=== PATIENT | male | born 1995 | race African-American/Black ===

== ENCOUNTER 2021-08-27 10:29 | Emergency (ER) | payer SELFPAY ==
[2021-08-27 13:14] LABS: SARS-COV-2 RT PCR POSITIVE (NEGATIVE)
--- NOTE | 2021-08-27 13:20 | ER ---
Nurse's Notes [facility] Name: Casey Valentine Age: 26 yrs Sex: Male : 1995 Arrival Date: 08/27/2021 Time: 10:30 Bed 10 Private MD: Diagnosis: Coronavirus infection, unspecified Presentation: 08/27 11:02 Chief complaint: Patient states: cough x 4 days. Pt states, "common cold symptoms.". ss Coronavirus screen: Client denies travel out of the [place] in the last 14 days. Ebola Screen: Patient denies exposure to infectious person. Patient denies travel to an Ebola-affected area in the 21 days before illness onset. Initial Sepsis Screen: Does the patient meet any 2 criteria? No. Patient's initial sepsis screen is negative. Does the patient have a suspected source of infection? No. Patient's initial sepsis screen is negative. Risk Assessment: Do you want to hurt yourself or someone else? Patient reports no desire to harm self or others. Onset of symptoms was August 23, 2021. 11:02 Method Of Arrival: Ambulatory ss 11:02 Acuity: MAVIS 4 ss Historical: - Allergies: 11:04 peanuts; ss - Home Meds: 11:04 None [Active]; ss - PMHx: 11:04 None; ss - PSHx: 11:04 None; ss - Immunization history:: Client reports having NOT received the Covid vaccine. - Social history:: Smoking status: Patient/guardian denies using tobacco, Stopped _ months ago .2. Screenin:25 Abuse screen: Denies threats or abuse. Denies injuries from another. Nutritional iw screening: No deficits noted. Tuberculosis screening: No symptoms or risk factors identified. Fall Risk None identified. Assessment: 13:10 General: Appears in no apparent distress. Behavior is calm, cooperative. Pain: Denies iw pain. Neuro: Level of Consciousness is awake, alert, obeys commands, Oriented to person, place, time, situation, Moves all extremities. Full function. Cardiovascular: Patient's skin is warm and dry. Respiratory: Reports cough that is Respiratory effort is even, unlabored, Respiratory pattern is regular, symmetrical. GI: Abdomen is non-distended. Derm: Skin is intact, is healthy with good turgor. Musculoskeletal: Range of motion: intact in all extremities. Vital Signs: 11:02 BP 110 / 74; Pulse 73; Resp 16; Temp 97.8(TE); Pulse Ox 100% on R/A; Height 5 ft. 11 ss in. (180.34 cm); Pain 4/10; ED Course: 10:30 Patient arrived in ED. kc5 11:04 Triage completed. ss 11:04 Arm band placed on left wrist. ss 13:10 Patient has correct armband on for positive identification. iw 13:17 Magui Gregg, RN is Primary Nurse. iw 13:18 Jagjit Disla NP is PHCP. pm1 13:18 Matthew Alanis MD is Attending Physician. pm1 13:25 No provider procedures requiring assistance completed. Patient did not have IV access iw during this emergency room visit. Administered Medications: No medications were administered Outcome: 13:20 Discharge ordered by MD. pm1 13:34 Discharged to home ambulatory, with family. iw 13:34 Condition: good 13:34 Discharge instructions given to patient, Instructed on discharge instructions, follow up and referral plans. Demonstrated understanding of instructions, follow-up care. 13:35 Patient left the ED. iw Signatures: Magui Gregg, ROSA LEE Candace Roldan RN RN Jagjit Disla NP [employer] pm1 Radha Qureshi kc5
--- NOTE | 2021-08-27 13:20 | EDPHYS ---
Physician Documentation [facility] Name: Casey Valentine Age: 26 yrs Sex: Male : 1995 Arrival Date: 08/27/2021 Time: 10:30 Bed 10 Private MD: ED Physician Matthew Alanis HPI: 08/27 13:18 This 26 yrs old Black Male presents to ER via Ambulatory with complaints of Flu pm1 Symptoms. 13:18 The patient or guardian reports cough, with no sputum. Onset: The symptoms/episode pm1 began/occurred 3 day(s) ago. Severity of symptoms: in the emergency department the symptoms are unchanged. Modifying factors: The symptoms are alleviated by nothing, the symptoms are aggravated by nothing. Associated signs and symptoms: Pertinent positives: Body ache, Pertinent negatives: chest pain, diarrhea, fever, sore throat, vomiting. The patient has not experienced similar symptoms in the past. The patient has not recently seen a physician. Incident to ER with girlfriend who has similar symptoms. Historical: - Allergies: 11:04 peanuts; ss - Home Meds: 11:04 None [Active]; ss - PMHx: 11:04 None; ss - PSHx: 11:04 None; ss - Immunization history:: Client reports having NOT received the Covid vaccine. - Social history:: Smoking status: Patient/guardian denies using tobacco, Stopped _ months ago .2. ROS: 13:18 Eyes: Negative for injury, pain, redness, and discharge, ENT: Negative for injury, pm1 pain, and discharge, Neck: Negative for injury, pain, and swelling, Cardiovascular: Negative for chest pain, palpitations, and edema. 13:18 Abdomen/GI: Negative for abdominal pain, nausea, vomiting, diarrhea, and constipation, MS/Extremity: Negative for injury and deformity, Skin: Negative for injury, rash, and discoloration, Neuro: Negative for headache, weakness, numbness, tingling, and seizure. 13:18 Constitutional: Positive for body aches, Negative for fever, poor PO intake. 13:18 Respiratory: Positive for cough, Negative for shortness of breath, sputum production. 13:18 All other systems are negative. Exam: 13:18 Constitutional: This is a well developed, well nourished patient who is awake, alert, pm1 and in no acute distress. Head/Face: Normocephalic, atraumatic. 13:18 Back: No spinal tenderness. No costovertebral tenderness. Full range of motion. Skin: Warm, dry with normal turgor. Normal color with no rashes, no lesions, and no evidence of cellulitis. MS/ Extremity: Pulses equal, no cyanosis. Neurovascular intact. Full, normal range of motion. 13:18 Cardiovascular: Exam negative for acute changes, Rate: normal, Rhythm: regular, Pulses: no pulse deficits are appreciated. 13:18 Respiratory: Exam negative for acute changes, respiratory distress, shortness of breath, Breath sounds: are clear throughout. 13:18 Neuro: Exam negative for acute changes, Orientation: is normal, Mentation: is normal, Motor: is normal, moves all fours, Sensation: is normal, no obvious gross deficits. Vital Signs: 11:02 BP 110 / 74; Pulse 73; Resp 16; Temp 97.8(TE); Pulse Ox 100% on R/A; Height 5 ft. 11 ss in. (180.34 cm); Pain 4/10; MDM: 13:18 Patient medically screened. pm1 13:19 Data reviewed: vital signs. Data interpreted: Pulse oximetry: on room air is 100 %. pm1 Interpretation: normal. 13:19 Counseling: I had a detailed discussion with the patient and/or guardian regarding: lab pm1 results, the need for outpatient follow up, to return to the emergency department if symptoms worsen or persist or if there are any questions or concerns that arise at home. 08/27 11:45 Order name: Strep; Complete Time: 13:18 ss 08/27 11:45 Order name: COVID-19/FLU A+B (Document "Date of Onset" if Symptomatic); Complete Time: ss 13:18 08/27 12:24 Order name: Throat Culture EDMS Administered Medications: No medications were administered Disposition: 15:47 Co-signature as Attending Physician, Matthew Alanis MD I agree with the assessment and kdr plan of care. Disposition Summary: 08/27/21 13:20 Discharge Ordered Location: Home pm1 Problem: new pm1 Symptoms: have improved pm1 Condition: Stable pm1 Diagnosis - Coronavirus infection, unspecified pm1 Followup: pm1 - With: Emergency Department - When: As needed - Reason: Worsening of condition Followup: pm1 - With: Private Physician - When: 2 - 3 days - Reason: Recheck today's complaints, Continuance of care, Re-evaluation by your physician Discharge Instructions: - Discharge Summary Sheet pm1 - COVID-19 pm1 - COVID-19 Frequently Asked Questions pm1 - 10 Things You Can Do to Manage Your COVID-19 Symptoms at Home - [facility] pm1 - COVID-19: Quarantine vs. Isolation - [facility] pm1 Forms: - Medication Reconciliation Form pm1 - Thank You Letter pm1 - Antibiotic Education pm1 - Prescription Opioid Use pm1 - Work release form jl7 Signatures: Dispatcher [employer] EDMS Matthew Alanis MD MD kdr Smirch, Shelby, RN RN ss Jagjit Disla NP [employer] pm1
[2021-08-27 14:04] VITALS: BP 110/74; TEMP 97.8; O2SAT 100
== END 2021-08-27 13:35 | disposition home or self-care (01) ==
LOC: ER 10:29
DX: U07.1 COVID-19 (principal)
CPT/HCPCS: 0240U; 87070; 87081; 99281

== ENCOUNTER 2022-04-15 10:36 | Emergency (ER) | payer SELFPAY ==
--- NOTE | 2022-04-15 11:50 | EDPHYS ---
Physician Documentation [facility] Name: Casey Valentine Age: 26 yrs Sex: Male : 1995 Arrival Date: 04/15/2022 Time: 10:39 Bed DIS5 Private MD: ED Physician Andi Plummer HPI: 04/15 11:44 This 26 yrs old Black Male presents to ER via Ambulatory with complaints of savana Vomiting/Diarrhea, Cough, Headache, Abdominal Pain. 11:44 The patient presents to the emergency department with nausea, vomiting, diarrhea, that savana is intermittent. Onset: The symptoms/episode began/occurred 5 day(s) ago. Possible causes: unknown. The symptoms are aggravated by nothing. The symptoms are alleviated by nothing. Associated signs and symptoms: The patient has no apparent associated signs or symptoms. Severity of symptoms: At their worst the symptoms were. The patient has experienced similar episodes in the past, a few times. Historical: - Allergies: 11:28 peanuts; iw - Immunization history:: Adult Immunizations unknown. - Social history:: Smoking status: unknown. ROS: 11:45 Constitutional: Negative for fever, chills, and weight loss, Eyes: Negative for injury, savana pain, redness, and discharge, ENT: Negative for injury, pain, and discharge, Neck: Negative for injury, pain, and swelling, Cardiovascular: Negative for chest pain, palpitations, and edema, Respiratory: Negative for shortness of breath, cough, wheezing, and pleuritic chest pain, Back: Negative for injury and pain, : Negative for injury, bleeding, discharge, and swelling, MS/Extremity: Negative for injury and deformity, Skin: Negative for injury, rash, and discoloration, Neuro: Negative for headache, weakness, numbness, tingling, and seizure, Psych: Negative for depression, anxiety, suicide ideation, homicidal ideation, and hallucinations, Allergy/Immunology: Negative for hives, rash, and allergies, Endocrine: Negative for neck swelling, polydipsia, polyuria, polyphagia, and marked weight changes, Hematologic/Lymphatic: Negative for swollen nodes, abnormal bleeding, and unusual bruising. 11:45 Abdomen/GI: Positive for nausea and vomiting, diarrhea. Exam: 11:45 Constitutional: This is a well developed, well nourished patient who is awake, alert, savana and in no acute distress. Head/Face: Normocephalic, atraumatic. Eyes: Pupils equal round and reactive to light, extra-ocular motions intact. Lids and lashes normal. Conjunctiva and sclera are non-icteric and not injected. Cornea within normal limits. Periorbital areas with no swelling, redness, or edema. ENT: Nares patent. No nasal discharge, no septal abnormalities noted. Tympanic membranes are normal and external auditory canals are clear. Oropharynx with no redness, swelling, or masses, exudates, or evidence of obstruction, uvula midline. Mucous membranes moist. Neck: Trachea midline, no thyromegaly or masses palpated, and no cervical lymphadenopathy. Supple, full range of motion without nuchal rigidity, or vertebral point tenderness. No Meningismus. Chest/axilla: Normal chest wall appearance and motion. Nontender with no deformity. No lesions are appreciated. Cardiovascular: Regular rate and rhythm with a normal S1 and S2. No gallops, murmurs, or rubs. Normal PMI, no JVD. No pulse deficits. Respiratory: Lungs have equal breath sounds bilaterally, clear to auscultation and percussion. No rales, rhonchi or wheezes noted. No increased work of breathing, no retractions or nasal flaring. Abdomen/GI: Soft, non-tender, with normal bowel sounds. No distension or tympany. No guarding or rebound. No evidence of tenderness throughout. Back: No spinal tenderness. No costovertebral tenderness. Full range of motion. Male : Normal genitalia with no discharge or lesions. Skin: Warm, dry with normal turgor. Normal color with no rashes, no lesions, and no evidence of cellulitis. MS/ Extremity: Pulses equal, no cyanosis. Neurovascular intact. Full, normal range of motion. Neuro: Awake and alert, GCS 15, oriented to person, place, time, and situation. Cranial nerves II-XII grossly intact. Motor strength 5/5 in all extremities. Sensory grossly intact. Cerebellar exam normal. Normal gait. Psych: Awake, alert, with orientation to person, place and time. Behavior, mood, and affect are within normal limits. Vital Signs: 11:28 BP 119 / 82; Pulse 77; Resp 16; Temp 98.4; Pulse Ox 99% on R/A; iw MDM: 11:04 Patient medically screened. [facility] 11:46 Differential diagnosis: Nonspecific abd pain, gastritis, viral gastroenteritis, savana gastroenteritis. Data reviewed: vital signs, nurses notes, lab test result(s). Data interpreted: process development manager: rate is 77 beats/min, rhythm is regular, Pulse oximetry: on room air is 99 %. Test interpretation: by ED physician or midlevel provider: ECG, plain radiologic studies. Counseling: I had a detailed discussion with the patient and/or guardian regarding: the historical points, exam findings, and any diagnostic results supporting the discharge/admit diagnosis, lab results, radiology results. 04/15 11:44 Order name: SARS RAPID savana Administered Medications: No medications were administered Disposition Summary: 04/15/22 11:49 Discharge Ordered Location: Home [facility] Problem: new savana Symptoms: have improved savana Condition: Stable savana Diagnosis - Vomiting savana - Diarrhea, unspecified savana - Cough savana Followup: savana - With: Private Physician - When: 2 - 3 days - Reason: Recheck today's complaints, Continuance of care, Re-evaluation by your physician Discharge Instructions: - Discharge Summary Sheet savana - Diarrhea, Adult savana - Diarrhea, Adult, [id number] savana - Cough, Adult, [id number] savana - Cough, Adult savana - Vomiting, Adult savana Forms: - Medication Reconciliation Form savana - Thank You Letter savana - Antibiotic Education savana - Prescription Opioid Use savana - Work release form eb Signatures: Dispatcher [employer] Andi George MD MD cha Williams, Irene, RN RN iw
--- NOTE | 2022-04-15 11:50 | ER ---
Nurse's Notes [facility] Name: Casey Valentine Age: 26 yrs Sex: Male : 1995 Arrival Date: 04/15/2022 Time: 10:39 Bed DIS5 Private MD: Diagnosis: Vomiting;Diarrhea, unspecified;Cough Presentation: 04/15 11:27 Chief complaint: Patient states: needs a COVId test, has diarrhea, acid reflux, iw vomiting , and I have a rash on my neck. Coronavirus screen: Client presents with at least one sign or symptom that may indicate coronavirus-19. Ebola Screen: Patient negative for fever greater than or equal to 101.5 degrees Fahrenheit, and additional compatible Ebola Virus Disease symptoms Patient denies exposure to infectious person. Patient denies travel to an Ebola-affected area in the 21 days before illness onset. No symptoms or risks identified at this time. 11:27 Method Of Arrival: Ambulatory iw 11:27 Acuity: MAVIS 4 iw 11:28 Initial Sepsis Screen: Does the patient meet any 2 criteria? No. Patient's initial iw sepsis screen is negative. Does the patient have a suspected source of infection? No. Patient's initial sepsis screen is negative. Risk Assessment: Do you want to hurt yourself or someone else? Patient reports no desire to harm self or others. Onset of symptoms was April 08, 2022. Triage Assessment: 11:30 General: Appears in no apparent distress. comfortable, Behavior is calm, cooperative. iw Pain: Denies pain. GI: Reports nausea. Historical: - Allergies: 11:28 peanuts; iw - Immunization history:: Adult Immunizations unknown. - Social history:: Smoking status: unknown. Screenin:01 Abuse screen: Denies threats or abuse. Nutritional screening: No deficits noted. bm7 Tuberculosis screening: No symptoms or risk factors identified. Fall Risk None identified. Assessment: 12:01 Reassessment: No changes from previously documented assessment. Patient is alert, bm7 oriented x 3, equal unlabored respirations, skin warm/dry/pink. 12:10 GI: Abdomen is flat, non-distended. iw Vital Signs: 11:28 BP 119 / 82; Pulse 77; Resp 16; Temp 98.4; Pulse Ox 99% on R/A; iw ED Course: 10:39 Patient arrived in ED. mr 11:04 Andi Plummer MD is Attending Physician. [facility] 11:28 Triage completed. iw 11:28 Arm band placed on. iw 11:30 Magui Gregg, RN is Primary Nurse. iw 12:01 Patient has correct armband on for positive identification. Call light in reach. bm7 12:01 No provider procedures requiring assistance completed. Patient did not have IV access bm7 during this emergency room visit. Administered Medications: No medications were administered Medication: 12:01 VIS not applicable for this client. bm7 Outcome: 11:49 Discharge ordered by . [facility] 12:01 Discharged to home ambulatory. bm7 12:01 Condition: good 12:01 Discharge instructions given to patient, Instructed on discharge instructions, follow up and referral plans. 12:02 Patient left the ED. bm7 Signatures: Andi Plummer MD MD cha Rivera Mary Lou mr Magui Gregg, RN RN Mariam Malik RN RN bm7
[2022-04-15 12:10] VITALS: BP 119/82; TEMP 98.4; O2SAT 99
[2022-04-15 12:31] LABS: SARS-CoV-2 Antigen Rapid Res Negative (Negative)
== END 2022-04-15 12:02 | disposition home or self-care (01) ==
LOC: ER 10:36
DX: R11.2 Nausea with vomiting, unspecified (principal); R19.7 Diarrhea, unspecified; R05.9 Cough, unspecified; Z91.010 Allergy to peanuts; Z20.822 Contact with and (suspected) exposure to COVID-19
CPT/HCPCS: 36415; 87811; 99281

== ENCOUNTER 2022-04-27 18:54 | Emergency (ER) | payer SELFPAY ==
--- NOTE | 2022-04-27 22:19 | ER ---
Nurse's Notes [facility] Name: Casey Valentine Age: 26 yrs Sex: Male : 1995 Arrival Date: 04/27/2022 Time: 18:59 Bed Waiting Private MD: Diagnosis: Presentation: 04/27 19:03 Chief complaint: EMS states: toned out to pt home for "self diagnosed heat stroke." C/O ld1 headache, N/V X 1 day. Coronavirus screen: At this time, the client does not indicate any symptoms associated with coronavirus-19. Ebola Screen: No symptoms or risks identified at this time. Initial Sepsis Screen: Does the patient meet any 2 criteria? Yes No. Patient's initial sepsis screen is negative. Does the patient have a suspected source of infection? No. Patient's initial sepsis screen is negative. Risk Assessment: Do you want to hurt yourself or someone else? Patient reports no desire to harm self or others. Onset of symptoms was April 27, 2022. 19:03 Method Of Arrival: EMS: [facility] ld1 19:03 Acuity: MAVIS 3 ld1 Triage Assessment: 19:05 General: Appears in no apparent distress. comfortable, Behavior is calm, cooperative, ld1 appropriate for age. Pain: Denies pain. EENT: No signs and/or symptoms were reported regarding the EENT system. Neuro: Level of Consciousness is awake, alert, obeys commands, Oriented to person, place, time, situation. Cardiovascular: Capillary refill < 3 seconds Patient's skin is warm and dry. Respiratory: Airway is patent Respiratory effort is even, unlabored. GI: Abdomen is round non-distended, Reports nausea, vomiting. : No signs and/or symptoms were reported regarding the genitourinary system. Derm: No signs and/or symptoms reported regarding the dermatologic system. Musculoskeletal: No signs and/or symptoms reported regarding the musculoskeletal system. Historical: - Allergies: 19:05 peanuts; ld1 - Home Meds: 19:05 None [Active]; ld1 - PMHx: 19:05 None; ld1 - PSHx: 19:05 None; ld1 - Immunization history:: Adult Immunizations up to date, Client reports having NOT received the Covid vaccine. - Social history:: Smoking status: Patient denies any tobacco usage or history of. Patient/guardian denies using alcohol. Vital Signs: 19:03 BP 143 / 77; Pulse 55; Resp 18; Temp 98.5(O); Pulse Ox 100% on R/A; Weight 108.86 kg; ld1 Height 5 ft. 11 in. (180.34 cm); Pain 0/10; 19:03 Body Mass Index 33.47 (108.86 kg, 180.34 cm) ld1 ED Course: 18:59 Patient arrived in ED. as 19:05 Triage completed. ld1 19:05 Arm band placed on right wrist. ld1 19:11 Mila Kowalski FNP-C is PHCP. snw 19:11 Andi Plummer MD is Attending Physician. snw 21:37 Patient's name was called from ER lobby. No response. ld1 22:18 Patient's name was called from ER lobby. No response. Unable to locate patient. Will bb disposition as left without being seen by a provider. Administered Medications: No medications were administered Outcome: 22:18 Patient left the ED. bb Signatures: Mila Kowalski FNP-C FNP-Agustina Erazo Brenda, RN RN bb Inez Forman RN RN ld1 Corrections: (The following items were deleted from the chart) 19:05 19:05 PSHx: Unable to Obtain; ld1 ld1
[2022-04-28 01:06] VITALS: BP 143/77; TEMP 98.5; O2SAT 100
== END 2022-04-27 22:18 | disposition left against medical advice (07) ==
LOC: ER 18:54
DX: Z02.9 Encounter for administrative examinations, unspecified (principal)
CPT/HCPCS: 99282